=== PATIENT | female | born 1950 | race Caucasian/White ===

== ENCOUNTER 2018-07-13 10:53 | Emergency (ER) | payer BC ==
--- NOTE | 2018-07-13 11:21 | ERPHSYRPT ---
- History of Present Illness Time Seen by Provider: 07/13/18 11:15 Source: patient, family Patient Subjective Stated Complaint: Pt states "My family said I have a little droop to my left cheek. I have a slight headache.". Pt family stated "It was brought to my attention by another family member that she had a little droop on the left side of her face then I noticed it yesterday." Triage Nursing Assessment: Pt alert and oriented X 3, skin pwd Pt ambulates with an upright steady gait, able to speak in clear full sentence.s PT has no facial droop that I can see, no apparent respiratory distress. Pt has CSM X 4, strong bilat muscle strength. Allergies/Adverse Reactions: oxaprozin [From [employer] Trans] Allergy (Verified 07/13/18 11:06) Hives Home Medications: Propranolol HCl 10 mg PO BID 07/13/18 [History] Hx Tetanus, Diphtheria Vaccination/Date Given: No Hx Influenza Vaccination/Date Given: No Hx Pneumococcal Vaccination/Date Given: No Immunizations Up to Date: Yes - Past Medical History Pertinent Past Medical History: Yes Neurological History: Migraines ENT History: No Pertinent History Cardiac History: No Pertinent History Respiratory History: No Pertinent History Endocrine Medical History: No Pertinent History Musculoskeletal History: No Pertinent History GI Medical History: No Pertinent History History: No Pertinent History Psycho-Social History: Depression Female Reproductive Disorders: No Pertinent History - Past Surgical History Past Surgical History: Yes Other Surgical History: . right foot - Social History Smoking Status: Never smoker Exposure to second hand smoke: Yes Drug Use: none Patient Lives Alone: Yes - Female History Hx Now: No - Nursing Vital Signs Nursing Vital Signs: Initial Vital Signs Temperature 97.8 F 07/13/18 10:57 Pulse Rate 72 07/13/18 10:57 Respiratory Rate 18 07/13/18 10:57 Blood Pressure 176/71 07/13/18 10:57 O2 Sat by Pulse Oximetry 99 07/13/18 10:57 Pain Scale Pain Intensity 0 - Physical Exam SpO2: 99 - Course Nursing assessment & vital signs reviewed: Yes EKG Interpreted by Me: RATE, Sinus Rhythm, NORMAL AXIS, NORMAL INTERVALS, NORMAL QRS, Other (no comparison ekg) Ordered Tests: Active Orders 24 hr Category Date Time Status [employer] STAT Care 07/13/18 11:23 Active Clean Catch Urine Specimen STAT Care 07/13/18 11:22 Active EKG-ER Only STAT Care 07/13/18 11:22 Active IV Insertion STAT Care 07/13/18 11:22 Active Re-Check Vital Signs STAT Care 07/13/18 11:22 Active HEAD WITHOUT CONTRAST [CT] Stat Exams 07/13/18 11:23 Taken CBC W DIFF Stat Lab 07/13/18 11:22 Completed CMP Stat Lab 07/13/18 11:22 Completed UA W/RFX UR CULTURE Stat Lab 07/13/18 12:25 Completed Medication Summary Discontinued Medications Generic Name Dose Route Start Last Admin Trade Name Freq PRN Reason Stop Dose Admin Enalaprilat 0.625 mg 07/13/18 12:21 07/13/18 12:37 Vasotec I.V. 2.5 Mg IV 07/13/18 12:22 0.625 mg STAT ONE Administration Enalaprilat Confirm 07/13/18 12:34 Vasotec I.V. 2.5 Mg Administered 07/13/18 12:35 Dose 2.5 mg IV .STK-MED ONE Lab/Rad Data: Laboratory Result Diagrams 07/13/18 11:22 07/13/18 11:22 Laboratory Results 07/13/18 07/13/18 07/13/18 Range/Units 12:25 11:22 11:22 WBC 6.0 (4.0-10.5) K/mm3 RBC 4.24 (4.1-5.4) M/mm3 Hgb 13.2 (12.0-16.0) gm/dl Hct 40.8 (35-47) % MCV 96.2 (78-100) fl MCH 31.1 (26-32) pg MCHC 32.4 (32-36) g/dl RDW 12.4 (11.5-14.0) % Plt Count 223 (150-450) K/mm3 MPV 10.9 H (6-9.5) fl Gran % 58.6 (36.0-66.0) % Eos # (Auto) 0.11 (0-0.5) Absolute Lymphs (auto) 1.79 (1.0-4.6) Absolute Monos (auto) 0.55 (0.0-1.3) Lymphocytes % 30.1 (24.0-44.0) % Monocytes % 9.2 (0.0-12.0) % Eosinophils % 1.8 (0.00-5.0) % Basophils % 0.3 (0.0-0.4) % Absolute Granulocytes 3.48 (1.4-6.9) Basophils # 0.02 (0-0.4) Sodium 140 (137-145) mmol/L Potassium 3.7 (3.5-5.1) mmol/L Chloride 104 (98-107) mmol/L Carbon Dioxide 29 (22-30) mmol/L Anion Gap 10.9 (5-15) MEQ/L BUN 15 (7-17) mg/dL Creatinine 0.66 (0.52-1.04) mg/dL Estimated GFR > 60.0 ML/MIN Glucose 91 (74-106) mg/dL Calcium 9.6 (8.4-10.2) mg/dL Total Bilirubin 0.50 (0.2-1.3) mg/dL AST 22 (14-36) U/L ALT 15 (0-35) U/L Alkaline Phosphatase 57 (38-126) U/L Serum Total Protein 7.6 (6.3-8.2) g/dL Albumin 4.4 (3.5-5.0) g/dL Urine Color YELLOW (YELLOW) Urine Appearance CLEAR (CLEAR) Urine pH 6.0 (5-6) Ur Specific [place] 1.012 (1.005-1.025) Urine Protein NEGATIVE (Negative) Urine Ketones NEGATIVE (NEGATIVE) Urine Blood NEGATIVE (0-5) Santhosh/ul Urine Nitrite NEGATIVE (NEGATIVE) Urine Bilirubin NEGATIVE (NEGATIVE) Urine Urobilinogen NEGATIVE (0-1) mg/dL Ur Leukocyte Esterase TRACE (NEGATIVE) Urine WBC (Auto) 0-2 (0-5) /HPF Urine RBC (Auto) NONE (0-2) /HPF U Epithel Cells (Auto) NONE (FEW) /HPF Urine Bacteria (Auto) NONE (NEGATIVE) /HPF Urine Mucus (Auto) SLIGHT (NEGATIVE) /HPF Urine Culture Reflexed NO (NO) Urine Glucose NEGATIVE (NEGATIVE) mg/dL - Progress Progress: unchanged, re-examined Counseled pt/family regarding: lab results, diagnosis, need for follow-up, rad results - Departure Departure Disposition: Home Clinical Impression: UTI (urinary tract infection), Hypertension Condition: Stable Critical Care Time: No Referrals: FOX MARQUIS [Primary Care Provider] - Additional Instructions: follow up with primary doctor on Sunday July 15, 2018 for further management Prescriptions: Cephalexin Mh 500 mg [Keflex 500 mg] 500 mg PO TID #15 capsule Hydrochlorothiazide 12.5 mg PO DAILY #14 tablet
[2018-07-13 11:32] LABS: BASOPHIL % 0.3 % (0.0-0.4); Basophil (Absolute #) 0.02 (0-0.4); Eosinophil % 1.8 % (0.00-5.0); Eosinophil (Absolute #) 0.11 (0-0.5); Granulocyte Absolute (ANC) 3.48 (1.4-6.9); Granulocytes % 58.6 % (36.0-66.0); Hematocrit 40.8 % (35-47); Hemoglobin 13.2 gm/dl (12.0-16.0); Lymphocyte (Absolute #) 1.79 (1.0-4.6); Lymphocytes % 30.1 % (24.0-44.0); Mean Cell Volume 96.2 fl (78-100); Mean Corpuscular Hemoglobin 31.1 pg (26-32); Mean Corpuscular Hgb Concent. 32.4 g/dl (32-36); Mean Platelet Volume 10.9 fl (6-9.5); Monocyte (Absolute #) 0.55 (0.0-1.3); Monocytes % 9.2 % (0.0-12.0); Platelet Count 223 K/mm3 (150-450); Red Blood Count 4.24 M/mm3 (4.1-5.4); Red Cell Distribution Width 12.4 % (11.5-14.0)
[2018-07-13 11:44] LABS: ALBUMIN 4.4 g/dL (3.5-5.0); ALKALINE PHOSPHATASE 57 U/L (38-126); ANION GAP 10.9 MEQ/L (5-15); BLOOD UREA NITROGEN 15 mg/dL (7-17); CHLORIDE 104 mmol/L (98-107); Calcium 9.6 mg/dL (8.4-10.2); Carbon Dioxide 29 mmol/L (22-30); Creatinine 1 0.66 mg/dL (0.52-1.04); Glucose 91 mg/dL (74-106); Potassium 3.7 mmol/L (3.5-5.1); SGOT/AST 22 U/L (14-36); SGPT/ALT 15 U/L (0-35); SODIUM 140 mmol/L (137-145); Total Protein 7.6 g/dL (6.3-8.2)
[2018-07-13] MEDS ORDERED: VASOTEC I.V. 2.5 MG IV ONE ×2 (12:21→12:34)
[2018-07-13 12:53] LABS: Appearance CLEAR (CLEAR); Bilirubin NEGATIVE (NEGATIVE); Blood NEGATIVE Ery/ul (0-5); Glucose NEGATIVE (NEGATIVE); Ketones NEGATIVE (NEGATIVE); Leukocyte Esterase TRACE (NEGATIVE); Mucus SLIGHT /HPF (NEGATIVE); Nitrite NEGATIVE (NEGATIVE); Protein,Urine Dip NEGATIVE (Negative); Specific Gravity 1.012 (1.005-1.025); Urobilinogen NEGATIVE mg/dL (0-1); WBC 0-2 /HPF (0-5)
[2018-07-13 13:05] VITALS: BP 157/73; PULSE 56
[2018-07-13 13:13] VITALS: O2SAT 99
--- NOTE | 2018-07-13 21:25 | XRAY ---
Indication: Left facial drooping. Multiple contiguous axial images obtained through the head without contrast. Comparison: None Normal appearing brain parenchyma, ventricles, and bony calvarium. Visualized paranasal sinuses and mastoid air cells are clear. Impression: Normal CT head without contrast exam. Comment: Preliminary interpretation was made by [facility]. No discrepancy. CTDI 68.51
== END 2018-07-13 13:33 | disposition home or self-care (01) ==
LOC: ED 10:53
DX: N39.0 Urinary tract infection, site not specified (principal); I10 Essential (primary) hypertension; F32.9 Major depressive disorder, single episode, unspecified
CPT/HCPCS: 36000; 36415; 70450; 80053; 81001; 85025; 93005; 93041; 96374; 99284

== ENCOUNTER 2024-04-11 01:53 | Observation (INO) | payer MEDICARE, OTHER ==
[2024-04-11] MEDS ORDERED: Zofran 4 MG/2 ML VIAL IV ONE (02:35)
[2024-04-11] MEDS ORDERED: MORPHINE SULFATE 4 MG INJ IV ONE ×2 (02:43→03:11)
[2024-04-11] MEDS ORDERED: Sodium Chloride 0.9% 1000 ML 1,000 ML IV ONE (03:23)
[2024-04-11 03:40] LABS: Hematocrit 34.3 % (34.1-44.9); Hemoglobin 11.5 g/dL (11.2-15.7); Mean Cell Volume 95.5 fL (79.4-94.8); Mean Corpuscular Hgb Concent. 33.5 g/dL (32.2-35.5); Mean Platelet Volume 9.6 fL (9.4-12.3); Platelet Count 262 x10^3/uL (182-369); Red Blood Count 3.59 x10^6/uL (3.93-5.22); Red Cell Distribution Width 12.4 % (11.7-14.4); White Blood Count 10.4 x10^3/uL (3.98-10.04)
[2024-04-11 03:41] LABS: ALBUMIN 4.4 g/dL (3.5-5.0); ALKALINE PHOSPHATASE 65 U/L (38-126); ANION GAP 12.3 MEQ/L (5-15); BLOOD UREA NITROGEN 26 mg/dL (7-17); CHLORIDE 105 mmol/L (98-107); Calcium 9.7 mg/dL (8.4-10.2); Carbon Dioxide 22 mmol/L (22-30); Creatinine 1 0.66 mg/dL (0.52-1.04); EST GLOMERULAR FILTRATION RATE 93.7 ML/MIN; Glucose 114 mg/dL (74-106); INFLUENZA A NEGATIVE (NEGATIVE); INFLUENZA B NEGATIVE (NEGATIVE); LIPASE 86 U/L (23-300); Potassium 3.8 mmol/L (3.5-5.1); RESPIRATORY SYNCTIAL VIRUS NEGATIVE (NEGATIVE); SARS-CoV-2 Xpert Express NEGATIVE (NEGATIVE); SGOT/AST 31 U/L (14-36); SGPT/ALT 17 U/L (0-35); SODIUM 135 mmol/L (135-145); TROPONIN < 0.012 ng/mL (0.000-0.033); Total Protein 7.1 g/dL (6.3-8.2)
[2024-04-11 03:51] LABS: Appearance Turbid (Clear); Bacteria None Seen /HPF (None Seen); Bilirubin Negative (Negative); Blood Negative (Negative); Epithelial Cells None Seen /HPF (None Seen); Glucose, Urine Negative (Negative); Hyaline Casts NONE SEEN /LPF (0-2); Ketones Negative (Negative); Leukocyte Esterase Negative (Negative); Nitrite Negative (Negative); Protein,Urine Dip Negative (Negative); Specific Gravity 1.015 (1.005-1.030); WBC 0-2 /HPF (0-5)
[2024-04-11] MEDS ORDERED: Hydromorphone 1 mg/ml Injection ONE ×2 (03:51→16:37)
[2024-04-11] MEDS ORDERED: Sodium Chloride 100ML MINI-BAG PLUS 100 ML IV ONE ×2 (04:40→06:28)
[2024-04-11] MEDS ORDERED: PIPERACILLIN/TAZOBACTAM IV ONE ×2 (04:40→06:28)
--- NOTE | 2024-04-11 05:21 | XRAY ---
CLINICAL HISTORY: RUQ PAIN COMPARISON: None. TECHNIQUE: CT scan of the abdomen and pelvis was performed without IV contrast. Coronal and sagittal reconstructive images were also obtained.One of the following dose-reduction techniques was utilized for this exam.Automated exposure control, adjustment of the mA and/or kV according to patient size, and use of iterative reconstruction. CTDI 10.29 DLP 480.44 FINDINGS: Abdomen: The liver is normal in size. No diffuse parenchymal abnormality. A right hepatic segment V hypodense focal lesion measuring 10 mm. Another hypodense 4 mm focal lesion is noted at the hepatic dome. The portal vein, intrahepatic biliary radicals are normal. The spleen, pancreas, and adrenal glands are unremarkable. The kidneys are unremarkable. They are normal in size and shape. No calculi or hydronephrosis. The gallbladder shows mild circumferential mural thciekning, with moderate dilatation of the CBD reaching up to 10 mm along its course, with no internal hyperdensities or related masses. The ascending colon, the transverse colon, the descending colon, and the visualized small bowel loops are unremarkable. The appendix is normal in size without jenna appendiceal fat stranding and without an appendicolith. There is no evidence of significant enlargement of the mesenteric or retroperitoneal lymph nodes. Mild vascular calcifications. Pelvis: The urinary bladder is unremarkable. Few sigmoid diverticular outpouchings with no diverticulitis. The pelvic structures are unremarkable. The pelvic vasculature is unremarkable. No evidence of pelvic lymphadenopathy. Mild spondylotic changes of the lumbar spine. No lytic or sclerotic bone lesions. Right acetabular subarticular pseudocystic changes. Unremarkable lower Ct chest cuts. IMPRESSION: 1. The gallbladder shows mild circumferential mural thickening, with moderate dilatation of the CBD reaching up to 10 mm along its course, with no internal hyperdensities or related masses, ultrasound correlation is advised. 2. Right hepatic few hypodense focal lesions could be hepatic cysts. Electronically Signed by: Aisha Jerry MD. (04/11/2024 04:06:37 EST)
--- NOTE | 2024-04-11 06:15 | PCM.HP ---
History of Present Illness - Chief Complaint Chief Complaint: abd pain Date: 04/11/24 History of Present Illness: Ms. LAND is a 73 year old female with a past medical history significant for voice tremors, L knee replacement in February, and tonsillectomy presented to the hospital with complaints of abdominal pain starting around 8 p.m. Pain was severe, 10/10 in severity associated with some nausea but no vomiting or diarrhea. No recent sick contacts. CT scan demonstrated a distended gallbladder but no obvious stones. She was given some pain meds but still feels discomfort and nausea. No fever/chills. No chest pain or shortness of breath. No dysuria, hematuria or urinary urgency. - Review of Systems All Other Systems: Reviewed and Negative Medications & Allergies Home Medications: Home Medication List Acetaminophen 500 mg [Tylenol Extra Strength 500 mg] 1,000 mg PO Q8H 04/11/24 [History Confirmed 04/11/24] Aspirin EC 81 mg [Ecotrin 81 mg] 81 mg PO BID 04/11/24 [History Confirmed 04/11/24] Celecoxib 100 mg [celeBREX 100 MG] 200 mg PO BID 04/11/24 [History Confirmed 04/11/24] Oxycodone HCl 10 mg PO Q4H PRN 04/11/24 [History Confirmed 04/11/24] Polyethylene Glycol 3350 17 gm [Miralax Powder 17GM PACKET] 17 gm PO DAILY PRN 04/11/24 [History Confirmed 04/11/24] Propranolol HCl 10 mg PO BID 04/11/24 [History Confirmed 04/11/24] Sennosides/Docusate Sodium [Stimulant Laxative Plus Tablet] 1 tab PO BID 04/11/24 [History Confirmed 04/11/24] Allergies/Adverse Reactions: Allergies Allergy/AdvReac Type Severity Reaction Status Date / Time oxaprozin [From Daypro] Allergy Hives Verified 07/13/18 11:06 - Past Medical History Past Medical History: Yes Neurological History: Migraines ENT History: No Pertinent History Cardiac History: No Pertinent History Respiratory History: No Pertinent History Endocrine Medical History: No Pertinent History Musculoskelatal History: Osteoarthritis GI Medical History: No Pertinent History History: No Pertinent History Pyscho-Social History: Depression Reproductive Disorders: No Pertinent History Comment: VOICE TREMOR, R FOOT SURGERY - Past Surgical History Past Surgical History: Yes Neuro Surgical History: No Pertinent History Cardiac History: No Pertinent History Respiratory Surgery: No Pertinent History GI Surgical History: No Pertinent History Genitourinary Surgical Hx: No Pertinent History Musculskeletal Surgical Hx: No Pertinent History Female Surgical History: No Pertinent History Other Surgical History: . right foot - Social History Smoking Status: Never smoker Exposure to second hand smoke: Yes Alcohol: Occasionally Drug Use: none - Physical Exam General Appearance: moderate distress Neurologic Exam: alert, cooperative Ears, Nose, Throat Exam: dry mucous membranes Neck Exam: supple Respiratory Exam: No respiratory distress Cardiovascular Exam: regular rate/rhythm Gastrointestinal/Abdomen Exam: tenderness, guarding Extremity Exam: No pedal edema, No swelling Skin Exam: normal color, No rash Results - Labs Lab/Micro Results: Lab Results-Last 24 Hours 04/11/24 04/11/24 04/11/24 Range/Units 02:30 02:30 02:30 WBC 10.4 H (3.98-10.04) x10^3/uL RBC 3.59 L (3.93-5.22) x10^6/uL Hgb 11.5 (11.2-15.7) g/dL Hct 34.3 (34.1-44.9) % MCV 95.5 H (79.4-94.8) fL MCH 32.0 (25.6-32.2) pg MCHC 33.5 (32.2-35.5) g/dL RDW 12.4 (11.7-14.4) % Plt Count 262 (182-369) x10^3/uL MPV 9.6 (9.4-12.3) fL Sodium 135 (135-145) mmol/L Potassium 3.8 (3.5-5.1) mmol/L Chloride 105 (98-107) mmol/L Carbon Dioxide 22 (22-30) mmol/L Anion Gap 12.3 (5-15) MEQ/L BUN 26 H (7-17) mg/dL Creatinine 0.66 (0.52-1.04) mg/dL Estimated GFR 93.7 ML/MIN Glucose 114 H (74-106) mg/dL Calcium 9.7 (8.4-10.2) mg/dL Total Bilirubin 0.50 (0.2-1.3) mg/dL AST 31 (14-36) U/L ALT 17 (0-35) U/L Alkaline Phosphatase 65 (38-126) U/L Troponin I < 0.012 (0.000-0.033) ng/mL Serum Total Protein 7.1 (6.3-8.2) g/dL Albumin 4.4 (3.5-5.0) g/dL Lipase 86 (23-300) U/L Urine Color Yellow (Yellow) Urine Appearance Turbid A (Clear) Urine pH 8.0 (4.6-8.0) Ur Specific Chem[place] 1.015 (1.005-1.030) Urine Protein Negative (Negative) Urine Glucose (UA) Negative (Negative) mg/dL Urine Ketones Negative (Negative) Urine Blood Negative (Negative) Urine Nitrite Negative (Negative) Urine Bilirubin Negative (Negative) Urine Urobilinogen 1.0 A (0.2) mg/dL Ur Leukocyte Esterase Negative (Negative) U Hyaline Cast (Auto) NONE SEEN (0-2) /LPF Urine Microscopic RBC 3-5 (0-5) /HPF Urine Microscopic WBC 0-2 (0-5) /HPF Ur Epithelial Cells None Seen (None Seen) /HPF Urine Bacteria None Seen (None Seen) /HPF Urine Culture Reflexed NO (NO) Influenza Type A Ag (NEGATIVE) Influenza Type B Ag (NEGATIVE) RSV (PCR) (NEGATIVE) SARS-CoV-2 (PCR) (NEGATIVE) 04/11/24 Range/Units 02:30 WBC (3.98-10.04) x10^3/uL RBC (3.93-5.22) x10^6/uL Hgb (11.2-15.7) g/dL Hct (34.1-44.9) % MCV (79.4-94.8) fL MCH (25.6-32.2) pg MCHC (32.2-35.5) g/dL RDW (11.7-14.4) % Plt Count (182-369) x10^3/uL MPV (9.4-12.3) fL Sodium (135-145) mmol/L Potassium (3.5-5.1) mmol/L Chloride (98-107) mmol/L Carbon Dioxide (22-30) mmol/L Anion Gap (5-15) MEQ/L BUN (7-17) mg/dL Creatinine (0.52-1.04) mg/dL Estimated GFR ML/MIN Glucose (74-106) mg/dL Calcium (8.4-10.2) mg/dL Total Bilirubin (0.2-1.3) mg/dL AST (14-36) U/L ALT (0-35) U/L Alkaline Phosphatase (38-126) U/L Troponin I (0.000-0.033) ng/mL Serum Total Protein (6.3-8.2) g/dL Albumin (3.5-5.0) g/dL Lipase (23-300) U/L Urine Color (Yellow) Urine Appearance (Clear) Urine pH (4.6-8.0) Ur Specific Chemult (1.005-1.030) Urine Protein (Negative) Urine Glucose (UA) (Negative) mg/dL Urine Ketones (Negative) Urine Blood (Negative) Urine Nitrite (Negative) Urine Bilirubin (Negative) Urine Urobilinogen (0.2) mg/dL Ur Leukocyte Esterase (Negative) U Hyaline Cast (Auto) (0-2) /LPF Urine Microscopic RBC (0-5) /HPF Urine Microscopic WBC (0-5) /HPF Ur Epithelial Cells (None Seen) /HPF Urine Bacteria (None Seen) /HPF Urine Culture Reflexed (NO) Influenza Type A Ag NEGATIVE (NEGATIVE) Influenza Type B Ag NEGATIVE (NEGATIVE) RSV (PCR) NEGATIVE (NEGATIVE) SARS-CoV-2 (PCR) NEGATIVE (NEGATIVE) - Radiology Impressions Radiology Exams & Impressions: Radiology Procedures Category Date Time Status ABDOMEN AND PELVIS W/0 CONTRAS [CT] Routine Exams 04/11/24 05:15 Completed Assessment/Plan (1) Abdominal pain Current Visit: Yes Status: Acute Qualifiers: Abdominal location: right upper quadrant Qualified Code(s): R10.11 - Right upper quadrant pain Assessment & Plan: RUQ pain likely consistent with cholecystitis with CT scan demonstrating GB/CBD thickening 1. Admit to hospital 2. Will obtain HIDA scan 3. NPO, start IVFs 4. Empiric antibiotics 5. Anti-emetics, pain meds 6. Surgery consult 7. DVT/GI prophylaxis Code(s): R10.9 - UNSPECIFIED ABDOMINAL PAIN (2) Voice tremor Current Visit: Yes Status: Acute Assessment & Plan: On Botox 1. Will hold for now Code(s): R49.8 - OTHER VOICE AND RESONANCE DISORDERS (3) Hypertension Current Visit: No Status: Acute Assessment & Plan: Likely exacerbated by pain 1. Pain control 2. Defer bp meds 3. Monitor blood pressure readings Code(s): I10 - ESSENTIAL (PRIMARY) HYPERTENSION (4) Nausea Current Visit: Yes Status: Acute Code(s): R11.0 - NAUSEA Telemedicine Encounter - Telemedicine Encounter Telemedicine Encounter: "The entirety of this encounter was performed via Telemedicine" This visit was performed using real-time audio and video connection between my location and thepatients locationwith the assistance of a surrogateat the patients location. Written or verbal consent was obtained from the patient/guardian to perform this visit [facility] technology. Any patient questions regarding the telemedicine interaction were answered.
[2024-04-11] MEDS: Hydromorphone 1 mg/ml Injection IV PRN (06:32)
[2024-04-11] MEDS: PIPERACILLIN/TAZOBACTAM 3.375 GM in Sodium Chloride 100ML MINI-BAG PLUS 100 ML IV SCH (06:34)
--- NOTE | 2024-04-11 09:29 | XRAY ---
Indication: Gallbladder wall thickening on CT. Two-dimensional gallbladder sonogram performed. Comparison: None Pancreas not well-seen due to overlying bowel gas. Visualized gallbladder moderately distended with 1.3 cm stone in neck of the gallbladder. Abnormal gallbladder wall thickening up to 5.2 mm with tiny pericholecystic fluid. Common bile duct measures 4.6 mm. No intrahepatic biliary distention. Right lobe liver demonstrate CT proven 1.6 cm cyst. No hepatomegaly or ascites. Right kidney measures 10.2 x 4.2 x 4.4 cm and sonographically unremarkable. Impression: 1. Nonvisualization pancreas. 2. Gallstone with abnormal gallbladder wall thickening and pericholecystic fluid favoring acute cholecystitis. 3. Incidental hepatic cyst.
[2024-04-11] MEDS ORDERED: APRESOLINE 20 MG/ML INJ IV PRN (09:38)
[2024-04-11] MEDS: Inderal PO SCH (10:16)
[2024-04-11] MEDS: Pepcid 20 MG PO SCH (10:16)
[2024-04-11] MEDS: Zofran 4 MG/2 ML VIAL IV PRN (11:01)
[2024-04-11] MEDS: Sodium Chloride 0.9% 1000 ML 1,000 ML IV SCH (14:32)
[2024-04-11] MEDS: CEFAZOLIN 2 GM/100 ML NaCl 2 GM/100 ML IVPB IV SCH (15:45)
[2024-04-11] MEDS ORDERED: dexAMETHasone sodium phosphate ONE (16:53)
[2024-04-11] MEDS ORDERED: SUBLIMAZE 100 MCG/2 ML ONE ×2 (16:55→19:11)
[2024-04-11] MEDS ORDERED: propofoL IV ONE ×2 (16:55→19:51)
[2024-04-11] MEDS ORDERED: Zofran 4 MG/2 ML VIAL ONE (16:55)
[2024-04-11] MEDS ORDERED: Xylocaine-Mpf 2% 5 Ml Vial ONE (16:55)
[2024-04-11] MEDS ORDERED: TORAdol 30 mg Injection ONE (16:55)
[2024-04-11] MEDS ORDERED: BRIDION 200MG/2ML IV ONE (16:55)
[2024-04-11] MEDS ORDERED: ROCURONIUM BROMIDE IV ONE (16:55)
[2024-04-11] MEDS ORDERED: Sensorcaine 0.25% 10 ML ONE (16:55)
[2024-04-11] MEDS ORDERED: Sodium Chloride 0.9% 1000 ML 1,000 ML ONE (17:35)
[2024-04-11] MEDS ORDERED: Lactated Ringers 1,000 ML IV ONE (17:58)
[2024-04-11] MEDS: Oxy-IR 5 MG PO PRN (22:40)
[2024-04-12] MEDS: TYLENOL 325 MG PO SCH ×2 (01:54→08:08)
[2024-04-12] MEDS: MOTRIN 600 MG PO SCH ×2 (01:54→08:08)
[2024-04-12 06:10] LABS: Absolute Neutrophil Ct (ANC) 9.98 x10^3/uL (1.56-6.13); BASOPHIL % 0.1 % (0.1-1.2); Basophil (Absolute #) 0.01 x10^3/uL (0.01-0.08); Eosinophil (Absolute #) 0 x10^3/uL (0.04-0.36); Hematocrit 33.5 % (34.1-44.9); Hemoglobin 11.1 g/dL (11.2-15.7); IMMATURE GRAN # 0.04 x10^3u/L (0.001-0.031); IMMATURE GRAN % 0.4 % (0.001-0.429); Lymphocyte (Absolute #) 0.65 x10^3/uL (1.18-3.74); Lymphocytes % 5.8 % (19.3-51.7); Mean Cell Volume 98.2 fL (79.4-94.8); Mean Corpuscular Hemoglobin 32.6 pg (25.6-32.2); Mean Corpuscular Hgb Concent. 33.1 g/dL (32.2-35.5); Mean Platelet Volume 11.5 fL (9.4-12.3); Monocyte (Absolute #) 0.58 x10^3/uL (0.24-0.86); Monocytes % 5.2 % (4.7-12.5); Neutrophil % 88.5 % (34.0-71.1); Platelet Count 180 x10^3/uL (182-369); Red Blood Count 3.41 x10^6/uL (3.93-5.22); Red Cell Distribution Width 12.7 % (11.7-14.4); White Blood Count 11.3 x10^3/uL (3.98-10.04)
[2024-04-12 06:24] LABS: ALBUMIN 3.9 g/dL (3.5-5.0); ANION GAP 11.5 MEQ/L (5-15); BILIRUBIN,TOTAL 1.1 mg/dL (0.2-1.3); Calcium 9.2 mg/dL (8.4-10.2); Creatinine 1 0.65 mg/dL (0.52-1.04); EST GLOMERULAR FILTRATION RATE 94.1 ML/MIN; Potassium 4.1 mmol/L (3.5-5.1); Total Protein 6.6 g/dL (6.3-8.2)
[2024-04-12 07:06] VITALS: BP 117/58; PULSE 66; RESP 16; TEMP 96.9; O2SAT 95
[2024-04-12] MEDS ORDERED: Oxy-IR 5 MG PO PRN (07:30)
--- NOTE | 2024-04-12 10:28 | PCM.DS ---
Discharge Summary Date of Admission: 04/11/24 05:48 Date of Discharge: 04/12/24 Admitting Physician: MECHELLE URIAS MD Consults: Consults on Case 04/11/24 07:30 Consult Surgery ROUTINE Primary Care Provider: DANISH VELAZCO DO Allergies Allergies oxaprozin [From Daypro] Allergy (Verified 07/13/18 11:06) [facility] Summary - Hospital Course Hospital Course: Ms. LAND is a 73 year old female with a past medical history significant for voice tremors, L knee replacement in February, and tonsillectomy. She presented to the hospital on 04/11/24 with complaints of abdominal pain starting around 8 p.m the night before. Pain was severe, 10/10 in severity associated with some nausea but no vomiting or diarrhea. No recent sick contacts. CT scan demonstrated a distended gallbladder but no obvious stones. She was given some pain meds but still feels discomfort and nausea. No fever/chills. No chest pain or shortness of breath. No dysuria, hematuria or urinary urgency. US completed and showed Gallstone with abnormal gallbladder wall thickening and pericholecystic fluid favoring acute cholecystitis. She was taken to surgery on 04/11 and started on zosyn and IVF. Overnight IV went bad and pt refused for IV to be restarted. Discussed with GS and he is OK with d/c today on Augmentin. Surgeon did find gangrene in the neck region of gallbladder when removed. Continue IBP and tylenol for pain. She has not been requiring anything stronger for pain while here. AST/ALT elevated and likely 2:2 surgery. Will need OP f/u. She states she is feeling much better, has some discomfort but manageable. She denies any further concerns at this time. - Vitals & Intake/Output Vital Signs: Vital Signs Temperature 96.9 F 04/12/24 07:06 Pulse Rate 66 04/12/24 07:06 Respiratory Rate 16 04/12/24 07:06 Blood Pressure 117/58 04/12/24 07:06 O2 Sat by Pulse Oximetry 95 04/12/24 07:06 Intake & Output: Intake & Output 04/09/24 04/10/24 04/11/24 04/12/24 11:59 11:59 11:59 11:59 Intake Total 1424 Balance 1424 Weight 72 kg 72 kg - Lab Result Diagrams: 04/12/24 05:45 04/12/24 05:45 Lab Results-Last 24 Hrs: Lab Results-Last 24 Hours 04/12/24 04/12/24 Range/Units 05:45 05:45 WBC 11.3 H (3.98-10.04) x10^3/uL RBC 3.41 L (3.93-5.22) x10^6/uL Hgb 11.1 L (11.2-15.7) g/dL Hct 33.5 L (34.1-44.9) % MCV 98.2 H (79.4-94.8) fL MCH 32.6 H (25.6-32.2) pg MCHC 33.1 (32.2-35.5) g/dL RDW 12.7 (11.7-14.4) % Plt Count 180 L (182-369) x10^3/uL MPV 11.5 (9.4-12.3) fL Gran % 88.5 H (34.0-71.1) % Immature Gran % (Auto) 0.4 (0.001-0.429) % Nucleat RBC Rel Count 0.0 (0.00-0.2) % Eos # (Auto) 0 L (0.04-0.36) x10^3/uL Immature Gran # (Auto) 0.04 H (0.001-0.031) x10^3u/L Absolute Lymphs (auto) 0.65 L (1.18-3.74) x10^3/uL Absolute Monos (auto) 0.58 (0.24-0.86) x10^3/uL Absolute Nucleated RBC 0.00 (0.00-0.012) x10^3u/L Lymphocytes % 5.8 L (19.3-51.7) % Monocytes % 5.2 (4.7-12.5) % Eosinophils % 0.0 L (0.7-5.8) % Basophils % 0.1 (0.1-1.2) % Absolute Granulocytes 9.98 H (1.56-6.13) x10^3/uL Basophils # 0.01 (0.01-0.08) x10^3/uL Sodium 135 (135-145) mmol/L Potassium 4.1 (3.5-5.1) mmol/L Chloride 105 (98-107) mmol/L Carbon Dioxide 23 (22-30) mmol/L Anion Gap 11.5 (5-15) MEQ/L BUN 17 (7-17) mg/dL Creatinine 0.65 (0.52-1.04) mg/dL Estimated GFR 94.1 ML/MIN Glucose 139 H (74-106) mg/dL Calcium 9.2 (8.4-10.2) mg/dL Total Bilirubin 1.10 (0.2-1.3) mg/dL AST 140 H (14-36) U/L ALT 82 H (0-35) U/L Alkaline Phosphatase 63 (38-126) U/L Serum Total Protein 6.6 (6.3-8.2) g/dL Albumin 3.9 (3.5-5.0) g/dL - Radiology Exams Ordered Rad Exams-Entire Visit: Radiology Procedures Category Date Time Status ABDOMEN AND PELVIS W/0 CONTRAS [CT] Routine Exams 04/11/24 05:15 Completed GALLBLADDER [US] Urgent Exams 04/11/24 07:47 Completed Discharge Exam General Appearance: no apparent distress, alert Neurologic Exam: alert, oriented x 3, cooperative, normal mood/affect, nml cerebellar function, sensation nml, No motor deficits Eye Exam: PERRL, EOMI, eyes nml inspection Ears, Nose, Throat Exam: normal ENT inspection, pharynx normal, moist mucous membranes Neck Exam: normal inspection, non-tender, supple, full range of motion Respiratory Exam: normal breath sounds, lungs clear, No respiratory distress Cardiovascular Exam: regular rate/rhythm, normal heart sounds Gastrointestinal/Abdomen Exam: soft, tenderness, No mass Pelvic Exam: deferred Rectal Exam: deferred Back Exam: normal inspection, normal range of motion, No CVA tenderness, No vertebral tenderness Extremity Exam: normal inspection, normal range of motion Skin Exam: normal color, warm, dry Wound Assessment: Skin/Wound Assessment Wound/Incision Assessment Start: 04/11/24 06:02 Text: Status: Active Freq: Q6H Protocol: Document 04/12/24 02:00 AK (Rec: 04/12/24 02:18 AK [id number]) Wound/Incision Assessment Abdomen Wound Assessment Shift Assessment Wound Type Incision Wound Stage Non Pressure Wound Drainage Amount None Comment laprascopic incisions from lap narcisa - POD #1 skin glue - [employer] Wound Photo Photo Taken No Final Diagnosis/Problem List - Final Discharge Diagnosis/Problem (1) Cholecystitis with gangrene of gallbladder Current Visit: Yes Status: Acute Assessment & Plan: - Per surgery report gangreene seen of neck of gallbladder - Ok per surgery to d/c with Augmentin - CBC, CMP reviewed - WBC 11.3- will need f/u labs OP - Was receiving IVF and zosyn, IV infiltrated and pt refused further IV - IV pain meds PRN - tylenol abd IBP for pain PRN - + BM today Code(s): K82.A1 - GANGRENE OF GALLBLADDER IN CHOLECYSTITIS (2) Abnormal AST and ALT Current Visit: Yes Status: Acute Assessment & Plan: - likely 2:2 surgery - AST 140, ALT 82 - f/u with PCP for OP labs Code(s): R74.8 - ABNORMAL LEVELS OF OTHER SERUM ENZYMES (3) Abdominal pain Current Visit: Yes Status: Acute Assessment & Plan: - 2:2 acute cholecystitis.- see above plan - GS consult - CBC, CMP reviewed - GB US: Impression: 1. Nonvisualization pancreas. 2. Gallstone with abnormal gallbladder wall thickening and pericholecystic fluid favoring acute cholecystitis. 3. Incidental hepatic cyst. - CT abd./Pelvis: IMPRESSION: 1. The gallbladder shows mild circumferential mural thickening, with moderate dilatation of the CBD reaching up to 10 mm along its course, with no internal hyperdensities or related masses, ultrasound correlation is advised. 2. Right hepatic few hypodense focal lesions could be hepatic cysts. 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 Will hold for now Code(s): R49.8 - OTHER VOICE AND RESONANCE DISORDERS (6) Hypertension Current Visit: No Status: Chronic Assessment & Plan: Likely exacerbated by pain 1. Pain control 2. Defer bp meds 3. Monitor blood pressure readings D/C plan took > 33 minutes Code(s): I10 - ESSENTIAL (PRIMARY) HYPERTENSION - Discharge Discharge Date: 04/12/24 Disposition: Home, Self-Care Condition: Stable Prescriptions: Continue Acetaminophen 500 mg [Tylenol Extra Strength 500 mg] 1,000 mg PO Q8H Sennosides/Docusate Sodium [Stimulant Laxative Plus Tablet] 1 tab PO BID Propranolol HCl 10 mg PO BID Oxycodone HCl 10 mg PO Q4H PRN PRN Reason: Pain Aspirin EC 81 mg [Ecotrin 81 mg] 81 mg PO BID Celecoxib 100 mg [celeBREX 100 MG] 200 mg PO BID Polyethylene Glycol 3350 17 gm [Miralax Powder 17GM PACKET] 17 gm PO DAILY PRN PRN Reason: Constipation Instructions: Cholecystectomy - Discharge instructions, Amoxicillin and Clavulanate, Probiotics, Acetaminophen, Ibuprofen Additional Instructions: You can take OTC Tylenol and IBP following label directions for pain- alternating. You may need to take an OTC probiotic as the antibiotic may cause upset stomach and diarrhea. Follow up this week with PCP for repeat labs. Follow up with: DANISH VELAZCO DO [Primary Care Provider] - 04/18/24 10:00 am KRISH ESCOBAR MD [ACTIVE STAFF] -
--- NOTE | 2024-04-16 20:13 | OP ---
OB OP NOTE - OPERATIVE NOTE Surgery Date: 04/11/24 (This is a General Surgery op note (not OB)) Surgery Time: 17:30 PREOPERATIVE DIAGNOSIS: acute cholecystitis POST OPERATIVE DIAGNOSIS: acute cholecystitis Procedure: Laparoscopic cholecystectomy Surgeon: KRISH ESCOBAR ANESTHESIA: General ESTIMATED BLOOD LOSS: minimal CONDITION: Stable COMPLICATIONS: None SPECIMEN: Gallbladder HISTORY - HISTORY HISTORY: HISTORY: 73 yo female presented with abdominal pain in the RUQ. Imaging c/w acute cholecystitis. Risk and benefits of surgery discussed in depth with the patient including but not limited to bleeding, infection, other organ injury, other surgical complications, anesthesia or medical complications. Patient would like to proceed with surgery. FINDINGS - FINDINGS FINDINGS: FINDINGS: Inflamed gallbladder with necrosis of the neck and large stone DESCRIPTION OF PROCEDURE - DESCRIPTION OF PROCEDURE DESCRIPTION OF PROCEDURE: DESCRIPTION OF PROCEDURE: After informed consent was obtained, the patient was brought to the operating room and placed supine on the operating room table. General endotracheal anesthesia was induced. Patient was given 5mg ICG. The patient was then prepped and draped in the usual sterile fashion. An #11 blade scalpel was used to make a small LUQ skin incision. A Veress needle was then used to obtain pneumoperitoneum. A 5mm optical trocar was then inserted above the umbilicus and introduced under direct visualization. The laparoscope was inserted and the site of entry accessed and there were no signs of injury from Veress or trochar entry. Three additional ports were placed all under direct vision. An 11-mm port was placed in the sub-xiphoid region. Two 5-mm ports were placed in the right upper quadrant. The patient was placed in reverse Trendelenburg position and slightly rotated to the left. The fundus of the gallbladder was retracted superiorly and laterally. The infundibulum was retracted inferiorly and laterally. Electrocautery was used to carefully begin dissection of the peritoneum down around the base of the gallbladder. The triangle of Calot was carefully opened up. The cystic duct was identified heading up into the base of the gallbladder. The cystic artery was also identified within the triangle of Calot. The gallbladder was then freed from the liver to obtain a critical view of safety. Appropriate anatomy was confirmed using firefly imaging. The cystic duct and the cystic artery were clipped twice on the stay side and once on the specimen side. Laparoscopic scissors were then introduced and the cystic duct was transected. The cystic artery was divided with hook cautery. The gallbladder was then dissected off the liver bed using electrocautery. The gallbladder was removed through the umbilical port site. The liver bed was then irrigated and suctioned. All dissection areas were inspected. Hemostasis was achieved. There was not any bile leakage. All clips were in place. The right gutter up over the edge of the liver was likewise irrigated and suctioned until dry. Umbilical port site was closed with a suture passer under direct visualization. All ports were then removed under direct vision. The abdominal cavity was allowed to deflate. All skin incisions were then closed with subcuticular sutures of 4-0 monocryl and 0.25% Marcaine was infiltrated into all port sites. Dermabond was applied to the wounds. The patient tolerated the procedure well. The patient was recovered and taken to PACU in stable condition.
== END 2024-04-12 12:10 | disposition home or self-care (01) ==
LOC: ED 01:53 → MED SURG 05:48
PROVIDERS: ADMIT Internal Medicine Nephrology; ATTEND Internal Medicine Nephrology
DX: K81.0 Acute cholecystitis (principal); K82.A1 Gangrene of gallbladder in cholecystitis; R74.8 Abnormal levels of other serum enzymes; R10.9 Unspecified abdominal pain; R11.0 Nausea; R49.8 Other voice and resonance disorders; I10 Essential (primary) hypertension; Z79.899 Other long term (current) drug therapy; Z96.652 Presence of left artificial knee joint
CPT/HCPCS: 00790; 0241U; 36415; 47562; 74176; 76705; 80053; 81001; 83690; 84484; 85025; 85027; 99100; G0378; Q3014; J0690; J1100; J1171; J1885; J2270; J2405; J2704; J3010; A9270-GY

== ENCOUNTER 2024-05-21 16:34 | Day surgery (SDC) | payer MEDICARE ==
[2024-05-21] MEDS ORDERED: dexAMETHasone sodium phosphate IJ ONE (16:35)
[2024-05-21] MEDS ORDERED: LIDOCAINE HCL 1% 50 MG/5 ML VL IJ ONE (16:35)
--- NOTE | 2024-05-21 21:38 | XRAY ---
Indication: Bilateral piriformis injection. Intraoperative fluoroscopy provided for 14 seconds. 2 digital spot images submitted for interpretation demonstrates posterior needle tip projecting over left and right piriformis. Small amount of contrast injected for both needle tip placement. Correlate with intraoperative findings/report.
--- NOTE | 2024-05-21 21:42 | XRAY ---
14 seconds of fluoroscopy were used in surgery for bilateral piriformis injections.
== END 2024-05-21 17:50 | disposition home or self-care (01) ==
LOC: SDC-PAIN 16:34
PROVIDERS: ATTEND Psychiatry & Neurology Pain Medicine
DX: M79.18 Myalgia, other site (principal)
CPT/HCPCS: 20552; 72170; 77002; J1100; Q9966